=== PATIENT | female | born 1995 | race Caucasian/White ===

== ENCOUNTER 2022-03-30 05:24 | Emergency (ER) | payer SELFPAY ==
[~2022-03-30] VITALS: Ht 160 cm; Wt 117.9 kg
[2022-03-30 05:31] VITALS: BP 130/93
[2022-03-30] MEDS: ONDANSETRON 4 MG/2 ML VIAL IVP ONE (06:06)
[2022-03-30] MEDS: KETOROLAC 30 MG/ML VIAL IVP ONE ×2 (06:08→08:36)
[2022-03-30] MEDS: MORPHINE SULFATE 4 MG/ML SYR IVP ONE (06:11)
[2022-03-30] MEDS: NACL 0.9% 1,000 ML IV ONE (06:12)
[2022-03-30 07:02] LABS: BASOPHILS % (AUTO) 0.7 % (0.0-2.0); EOSINOPHILS # (AUTO) 0.2 K/uL (0-0.4); EOSINOPHILS % (AUTO) 2.8 % (0.0-4.0); HEMATOCRIT 35.8 % (36-48); LYMPHOCYTES # (AUTO) 1.6 K/uL (2.5-16.5); LYMPHOCYTES % (AUTO) 28.4 % (20.5-51.1); MEAN CORPUSCULAR HEMOGLOBIN 29 pg (27-31); MEAN CORPUSCULAR HGB CONC 34 g/dL (33-37); MEAN CORPUSCULAR VOLUME 87.1 fL (80-94); MONOCYTES # (AUTO) 0.3 K/uL (0.8-1.0); MONOCYTES % (AUTO) 5.7 % (1.7-9.3); NEUTROPHILS # (AUTO) 3.5 K/uL (1.8-7.7); NEUTROPHILS % (AUTO) 62.4 % (42.2-75.2); PLATELET COUNT (AUTO) 264 K/uL (140-450); RED BLOOD CELL COUNT(AUTO) 4.11 MIL/uL (4.20-5.40); WHITE BLOOD COUNT (AUTO) 5.7 K/uL (4.8-10.8)
[2022-03-30 07:13] LABS: ANION GAP 9.5 (8-16); CARBON DIOXIDE 26.1 mmol/L (21-32); CREATININE 0.7 mg/dL (0.6-1.3); POTASSIUM 3.6 mmol/L (3.5-5.1); TOTAL BILIRUBIN 0.3 mg/dL (0.0-1.0)
[2022-03-30] MEDS: HYDROcodone/APAP 5/325 MG 1 TAB TAB PO ONE (08:34)
[2022-03-30] MEDS ORDERED: ONDA-188 SL (09:10)
[2022-03-30] MEDS ORDERED: ACET-9527 PO (09:10)
[2022-03-30 09:18] LABS: APPEARANCE,URINE CLEAR (CLEAR); BILIRUBIN,URINE NEGATIVE (NEGATIVE); BLOOD, URINE 2+ (NEGATIVE); COLOR,URINE YELLOW (YELLOW); LEUKOCYTE ESTERASE ,URINE NEGATIVE (NEGATIVE); NITRITE, URINE NEGATIVE (NEGATIVE); PH,URINE 6.5 (5.0-9.0); UGLUCOSE NEGATIVE (NEGATIVE)
[2022-03-30 09:33] LABS: WBC,URINE 0-5 /HPF (0-5)
[2022-03-30 09:44] VITALS: BP 110/71
== END 2022-03-30 09:43 | disposition home or self-care (01) ==
LOC: MED 05:24
DX: R10.11 Right upper quadrant pain (principal); R11.0 Nausea
CPT/HCPCS: 36415; 76705; 80053; 81001; 83690; 84703; 85025; 96361; 96374; 96375; 99284; J1885; J2270; J2405; J7030; Q0092